=== PATIENT | female | born 1940 | race American Indian/Alaskan Native ===

== ENCOUNTER 2018-08-01 07:28 | Day surgery (SDC) | payer BC ==
[2018-07-29 08:28] VITALS: BMI 27.4
[2018-08-01] MEDS ORDERED: Iodixanol 320 MG/ML 100 ML BOTTLE IV ONE (08:01)
[2018-08-01 08:17] LABS: BASO # 0.1 K/uL (0.0-0.2); BASO % 0.8 % (0.0-2.0); EOS # 0.3 K/uL (0.0-0.7); EOS % 3.6 % (0.0-4.0); HEMOGLOBIN 10.4 g/dL (11.0-16.0); LYMPH # 1.9 K/uL (1.0-4.3); LYMPH % 20.8 % (20.0-40.0); MEAN CELL VOLUME 72.6 fL (81.0-99.0); MEAN CORPUSCULAR HEMOGLOBIN 23.9 pg (27.0-31.0); MEAN PLATELET VOLUME 8.7 fL (7.2-11.7); MONO # 0.5 K/uL (0.0-0.8); MONO % 5.3 % (0.0-10.0); NEUT # 6.5 K/uL (1.8-7.0); NEUT % 69.5 % (50.0-75.0); NRBC % 0.1 % (0.0-2.0); RBC 4.33 Mil/uL (3.80-5.20); RED CELL DISTRIBUTION WIDTH 13.4 % (11.5-14.5); WHITE BLOOD COUNT 9.3 K/uL (4.8-10.8)
[2018-08-01 08:26] LABS: INR 1.1; PROTHROMBIN TIME 11.7 SECONDS (9.7-12.2)
[2018-08-01] MEDS ORDERED: Midazolam 2 MG/2 ML VIAL ONE ×2 (08:27→08:43)
[2018-08-01] MEDS ORDERED: DiphenhydrAMINE 50 mg/ml Inj ONE (10:16)
[2018-08-01] MEDS ORDERED: Lidocaine 2% MPF (5 ml) Inj ONE (10:47)
--- NOTE | 2018-08-01 23:14 | CARD ---
APPROVED REPORT Date of service: 08/01/2018 EXAM: Two-dimensional and M-mode echocardiogram with Doppler and color Doppler. Other Information Quality : GoodRhythm : INDICATION aortic stenosis RISK FACTORS Hypertension Hyperlipidemia 2D DIMENSIONS IVSd1.0 (0.7-1.1cm)LVDd3.7 (3.9-5.9cm) LVOT Diameter2.0 (1.8-2.4cm)PWd1.2 (0.7-1.1cm) LA Meyseu98 (18-58mL)LVDs2.1 (2.5-4.0cm) FS (%) 42.2 %LVEF (%)74.0 (>50%) LVEF ([place]'s)61.85 % M-Mode DIMENSIONS Left Atrium (MM)3.87 (2.5-4.0cm)IVSd1.10 (0.7-1.1cm) Aortic Root3.16 (2.2-3.7cm)LVDd4.61 (4.0-5.6cm) Aortic Cusp Exc.1.10 (1.5-2.0cm)PWd0.95 (0.7-1.1cm) FS (%) 42 %LVDs2.67 (2.0-3.8cm) LVEF (%)73 (>50%) Aortic Valve AoV Peak Xxjtixqg664.6cm/sAoV VTI92.6cmAO Peak GR.57mmHg LVOT Peak Xvyhiuqo663.1cm/sLVOT VTI28.16cmAO Mean GR.37mmHg MAC (VMAX)0.95jb0FXL (VTI)0.22mk1QH P 1/2 [id number] Mitral Valve MV E Xwqnqhor65.1cm/sMV A Vogypkpe909.8cm/sE/A ratio0.5 JCDF869.65 cm/s TDI Lateral E' Peak V5.71cm/sMedial E' Peak V5.38cm/sE/Lateral E'10.9 E/Medial E'11.5 Tricuspid Valve TR Peak Vkffghxt829th/sTR Peak Gr.34oxFpAYUY23yxMd LEFT VENTRICLE The left ventricle is normal size. There is mild concentric left ventricular hypertrophy. The left ventricular function is normal. The left ventricular ejection fraction is within the normal range. There is normal LV segmental wall motion. Transmitral Doppler flow pattern is Grade I-abnormal relaxation pattern. RIGHT VENTRICLE The right ventricle is normal size. There is normal right ventricular wall thickness. The right ventricular systolic function is normal. ATRIA The left atrium size is normal. The right atrium size is normal. AORTIC VALVE The aortic valve is moderately calcified. There is mild aortic regurgitation. There is severe valvular aortic stenosis. MITRAL VALVE The mitral valve is moderately thickened. There is no mitral valve stenosis. Mitral regurgitation is mild. TRICUSPID VALVE There is mild to moderate tricuspid regurgitation. There is mild to moderate pulmonary hypertension. GREAT VESSELS The aortic root is normal in size. <Conclusion> The left ventricle is normal size. There is mild concentric left ventricular hypertrophy. The left ventricular function is normal. The left ventricular ejection fraction is within the normal range. There is normal LV segmental wall motion. Transmitral Doppler flow pattern is Grade I-abnormal relaxation pattern. The aortic valve is moderately calcified. There is severe valvular aortic stenosis. There is mild aortic regurgitation. Mitral regurgitation is mild. There is mild to moderate tricuspid regurgitation. There is mild to moderate pulmonary hypertension.
--- NOTE | 2018-08-04 10:34 | CARDCATH ---
PROCEDURE DATE: 08/01/2018 PROCEDURES: 1. Right and left heart catheterization. 2. Coronary angiogram. CLINICAL INDICATIONS: 1. Severe symptomatic aortic stenosis. 2. Exertional dyspnea. 3. Hypertension. 4. Hyperlipidemia. REFERRING PHYSICIAN: Lydia Costello MD PERFORMING PHYSICIAN: Kei Corral MD DESCRIPTION OF PROCEDURE: After informed consent, the patient was prepped and draped in the usual sterile fashion. Using micropuncture technique, 6-[place] sheath was introduced into the right common femoral artery. A 7-[place]ian sheath was introduced into the right common femoral vein. Using the Arnold-Kari catheter, right heart catheterization was performed. PA saturation and aortic saturations were obtained. Pressures in the pulmonary artery, right ventricle and right atrium were measured. JL4 6-[place]ian diagnostic catheter engaged into the left main coronary artery. Contrast injected and left coronary angiogram was done. Then the catheter was exchanged to JR4 6-[place]ian diagnostic catheter. A 6-[place]ian diagnostic catheter engaged into the right coronary artery. Contrast injected and right coronary angiogram was done. Then using the straight Glidewire, aortic valve was crossed. [place] pigtail catheter was engaged into the left ventricle. Simultaneous pressures of left ventricle and aorta were obtained. LV angiogram was done . The patient tolerated the procedure well. Postprocedure, Mynx closure device applied with excellent hemostasis. FINDINGS OF LEFT HEART CATHETERIZATION: 1. Left main coronary artery is patent. 2. LAD and diagonal branches are patent. 3. Left circumflex is patent. Obtuse marginal 1 artery has a 50% nonobstructive stenosis. 4. Right coronary artery is dominant and patent. 5. Elevated ejection fraction of approximately 70%. EDP is 22. Mean gradient across the aortic valve is 40. Systemic pressure is 170 mmHg. LV systolic pressure is 210 mmHg. FINDING OF RIGHT HEART CATHETERIZATION: 1. Pressures in mmHg: PCW 7, PA 38/10, mean of 21, RV 39/8, RA 5. 2. Saturations: PA 75.2%, aorta 93%. CALCULATIONS: Cardiac output by Corona method is 6.07 L per minute and thermodilution method is 3.77 L per minute. Aortic valve area by Corona method is 0.96 sq cm and thermodilution method is 0.6 sq cm. IMPRESSION: After radiological supervision and radiological interpretation of the coronary imagin. Nonobstructive coronary arteries. 2. Nhcc-hj-biuxcqkw pulmonary hypertension. 3. Severe aortic stenosis with a valve area of 0.9 by Corona method and 0.6 by thermodilution method. PLAN: Recommend with aortic valve replacement. Kei Corral MD
== END 2018-08-01 15:30 | disposition home or self-care (01) ==
LOC: C.CATHLAB 07:28
PROVIDERS: ATTEND Internal Medicine Cardiovascular Disease
DX: I35.0 Nonrheumatic aortic (valve) stenosis (principal); I10 Essential (primary) hypertension; E78.5 Hyperlipidemia, unspecified
CPT/HCPCS: 36415; 80048; 82948; 85025; 85610; 85730; 93306; 93460; C1714; C1760; C1766; C1769; C1887; C1894; J1200; J1644; J2250; J3010; Q9967